=== PATIENT | female | born 1990 | race Two or more races ===

== ENCOUNTER 2021-05-17 00:31 | Observation (INO) | payer MEDICAID ==
[~2021-05-17] VITALS: Ht 157.5 cm; Wt 113.4 kg
[2021-05-17] MEDS ORDERED: TERBUTALINE SULFATE 1 MG/ML 1ML VIAL SC ONE (02:28)
[2021-05-17] MEDS: TERBUTALINE SULFATE 1 MG/ML 1ML VIAL SC SCH ×3 (02:31→03:21)
== END 2021-05-17 04:16 | disposition home or self-care (01) ==
LOC: LDRP 00:31
PROVIDERS: ADMIT Obstetrics & Gynecology; ATTEND Obstetrics & Gynecology
DX: O46.93 Antepartum hemorrhage, unspecified, third trimester (principal); O26.893 Other specified pregnancy related conditions, third trimester; R10.9 Unspecified abdominal pain; Z3A.35 35 weeks gestation of pregnancy
CPT/HCPCS: 59025; 76805; 76817; 76818; 81002; 96372; G0378; G0379; J3105

== ENCOUNTER 2022-01-09 20:23 | Emergency (ER) | payer MEDICAID, OTHER | END 2022-01-09 21:08 | disposition left against medical advice (07) | LOC: EDBD 20:23 → ER 20:23 | DX: R55 Syncope and collapse (principal); Z53.21 Procedure and treatment not carried out due to patient leaving prior to being seen by health care provider | CPT/HCPCS: 93005 ==

== ENCOUNTER 2022-08-06 08:46 | Emergency (ER) | payer MEDICAID ==
[~2022-08-06] VITALS: Ht 162.6 cm; Wt 113.4 kg
[2022-08-06] MEDS ORDERED: ASPirin 81 mg TAB PO ONE (09:00)
[2022-08-06 09:14] LABS: Basophils # (auto) 0.1 10 ^3/uL (0-0.2); Basophils % (auto) 0.7 % (0.0-2.0); Eosinophils # (auto) 0.1 10 ^3/uL (0-0.8); Lymphocytes # (auto) 1.6 10 ^3/uL (0.4-5.4); Neutrophils # (auto) 5.5 10 ^3/uL (1.6-8.6); Nucleated Red Blood Cells % 0.2 %; White Blood Cell 7.9 10^3/uL (4.4-10.8)
[2022-08-06 09:15] LABS: Eosinophils % (auto) 1.7 % (0.0-7.0); Hematocrit 35.3 % (36.0-46.0); Hemoglobin 11.3 g/dL (12.2-16.2); Lymphocytes % (auto) 20.6 % (10.0-50.0); Mean Corpuscular Hemoglobin 23.8 pg (28.0-32.0); Mean Corpuscular Volume 74.6 fL (80.0-100.0); Monocytes # (auto) 0.6 10 ^3/uL (0-1.3); Monocytes % (auto) 7.9 % (0.0-12.0); Neutrophils % (auto) 69.1 % (37.0-80.0); Red Blood Cells 4.73 10^6/uL (4.0-5.20); Red Cell Distribution Width 16.3 % (11.8-14.3)
[2022-08-06 09:38] LABS: Albumin 3.5 g/dL (3.4-5.0); Calcium 8.7 mg/dL (8.5-10.1); Potassium 4.9 mmol/L (3.5-5.1)
[2022-08-06 09:43] LABS: BUN/Creatinine Ratio 21.2 (10.0-20.0); Bilirubin, Total 0.5 mg/dL (0.2-1.0); Total Protein 7.2 g/dL (6.4-8.2)
[2022-08-06 13:49] VITALS: BP 120/76
== END 2022-08-06 14:29 | disposition home or self-care (01) ==
LOC: ER 08:46
DX: R07.89 Other chest pain (principal); R51.9 Headache, unspecified
CPT/HCPCS: 36415; 70450; 71046; 80053; 84484; 85025; 85379; 93005

== ENCOUNTER 2023-06-22 15:33 | Emergency (ER) | payer MEDICAID ==
[~2023-06-22] VITALS: Ht 162.6 cm; Wt 100.0 kg
[2023-06-22 16:10] LABS: Basophils # (auto) 0 10 ^3/uL (0-0.2); Eosinophils # (auto) 0 10 ^3/uL (0-0.8); Lymphocytes # (auto) 0.5 10 ^3/uL (0.4-5.4); Monocytes # (auto) 0.2 10 ^3/uL (0-1.3); Nucleated Red Blood Cells % 0.1 %; Red Cell Distribution Width 18.2 % (11.8-14.3)
[2023-06-22 16:12] LABS: Basophils % (auto) 0.1 % (0.0-2.0); Hematocrit 33.9 % (36.0-46.0); Hemoglobin 10.6 g/dL (12.2-16.2); Lymphocytes % (auto) 4.2 % (10.0-50.0); Mean Corpuscular Hemoglobin 22.6 pg (28.0-32.0); Mean Corpuscular Hgb Conc. 31.2 g/dL (32.0-36.0); Mean Corpuscular Volume 72.2 fL (80.0-100.0); Monocytes % (auto) 1.4 % (0.0-12.0); Neutrophils # (auto) 10.7 10 ^3/uL (1.6-8.6); Neutrophils % (auto) 94.3 % (37.0-80.0); White Blood Cell 11.3 10^3/uL (4.4-10.8)
[2023-06-22 16:14] LABS: Base Excess -3.5 mmol/L (-2.0-2.0)
[2023-06-22 16:30] LABS: Alanine Aminotransferase 19 U/L (7-40); Albumin 4.4 g/dL (3.2-4.8); Alkaline Phosphatase 76 U/L (46-116); Anion Gap 12 (5-15); Aspartate Aminotransferase 12 U/L (13-40); BUN/Creatinine Ratio 18.5 (10.0-20.0); Blood Urea Nitrogen 12 mg/dL (9-23); Calcium 9.8 mg/dL (8.7-10.4); Carbon Dioxide 18 mmol/L (20-30); Chloride 109 mmol/L (98-107); Glucose 210 mg/dL (74-106); Lipase 36 U/L (12-53); Potassium 4.3 mmol/L (3.5-5.1); Sodium 139 mmol/L (136-145)
[2023-06-22 16:31] LABS: Bilirubin, Total 0.4 mg/dL (0.2-1.0); Total Protein 7.3 g/dL (5.7-8.2)
[2023-06-22] MEDS: LORazepam 2MG/ML-1ML VIAL IV ONE (16:39)
[2023-06-22 17:18] LABS: Urine Bacteria FEW /hpf (None Seen); Urine Blood Negative /uL (Negative); Urine Clarity HAZY (Clear); Urine Color Yellow (Yellow); Urine Mucus MANY (None Seen); Urine Protein, UAD TRACE (Negative); Urine Urobilinogen Normal (Negative); Urine WBC 4 /hpf (0 - 5)
[2023-06-22] MEDS: IOHEXOL 350 MG/ML 100ML IJ ONE (17:34)
[2023-06-22] MEDS: diphenhdrAMINE HCL 25 MG CAP PO ONE (19:42)
[2023-06-22 19:51] VITALS: BP 113/74; PULSE 87; RESP 18; O2SAT 99
[2023-06-22] MEDS ORDERED: NITR-87 PO (20:43)
== END 2023-06-22 20:51 | disposition home or self-care (01) ==
LOC: ER 15:33
DX: R07.89 Other chest pain (principal); R10.2 Pelvic and perineal pain; F45.8 Other somatoform disorders
CPT/HCPCS: 36415; 36600; 71045; 71275; 80053; 81001; 82805; 83690; 84484; 84702; 85025; 85379; 96374; 99285; J2060; Q9967